=== PATIENT | male | born 1990 | race Two or more races ===

== ENCOUNTER 2025-01-28 20:55 | Emergency (ER) | payer MEDICAID ==
[~2025-01-28] VITALS: Ht 182.9 cm; Wt 95.0 kg
[2025-01-28 22:28] VITALS: BP 127/84; PULSE 103; RESP 18; TEMP 99; O2SAT 100
[2025-01-28] MEDS: ACETAMINOPHEN 500 MG TABLET PO ONE (22:42)
== END 2025-01-28 23:35 ==
LOC: EMS 20:55
DX: S09.90XA Unspecified injury of head, initial encounter (principal); F15.90 Other stimulant use, unspecified, uncomplicated; Y04.0XXA Assault by unarmed brawl or fight, initial encounter; Y93.89 Activity, other specified; Y92.89 Other specified places as the place of occurrence of the external cause; Y99.8 Other external cause status
CPT/HCPCS: 99283